=== PATIENT | male | born 1990 | race Caucasian/White ===

== ENCOUNTER 2016-08-18 16:03 | Inpatient (IN) | payer OTHER ==
[~2016-08-18] VITALS: Ht 185.4 cm; Wt 87.2 kg
--- NOTE | ~2016-08-18 | EKG ---
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
[2016-08-18 16:05] VITALS: BP 190/122
[2016-08-18] MEDS ORDERED: NORCO 5-325 TA1 EACH PO (16:12)
[2016-08-18 18:54] LABS: AMP/METHAMP Negative (Negative); BARBITURATES Negative (Negative); BENZODIAZEPINES POSITIVE (Negative); COCAINE Negative (Negative); METHADONE Negative (Negative); OPIATES POSITIVE (Negative); PCP Negative (Negative); THC Negative (Negative)
[2016-08-18 18:59] LABS: HEMATOCRIT 42.4 % (42.0-52.0); HEMOGLOBIN 15.1 gm/dL (14.0-18.0); MCH 31.9 pg (26.0-34.0); MCHC 35.5 g/dL (28.0-37.0); MCV 89.7 fL (80.0-100.0); PLATELET COUNT 265 thou/uL (150-400); RBC 4.72 mil/uL (4.50-6.00); RDW 12.7 % (10.5-14.5); WBC 12.9 thou/uL (4.0-11.0)
[2016-08-18 19:02] LABS: MANUAL DIFF YES
[2016-08-18 19:08] LABS: CALCIUM 9.5 mg/dL (8.5-10.1); CREATININE 1.4 mg/dL (0.7-1.3); POTASSIUM 4.1 mmol/L (3.5-5.1)
[2016-08-18 19:13] LABS: ALBUMIN 4.4 g/dL (3.4-5.0); TOTAL BILIRUBIN 0.9 mg/dL (<0.1-1.0); TOTAL PROTEIN 8.5 g/dL (6.4-8.2)
[2016-08-18 19:24] LABS: ABSOLUTE NEUTROPHILS 11.7 thou/uL (1.4-8.2); TOTAL CELL COUNT 100
[2016-08-18 19:25] VITALS: BP 161/88
[2016-08-18 19:27] VITALS: BP 146/82
[2016-08-18] MEDS ORDERED: FLEXERIL PO (20:32)
[2016-08-19 00:34] VITALS: BP 131/74
[2016-08-19 04:00] VITALS: BP 131/70
[2016-08-19 07:34] VITALS: BP 134/63
[2016-08-19] MEDS ORDERED: VALIUM5 MG PO (11:02)
[2016-08-19] MEDS ORDERED: IBUPROFEN 400400 M2 PO (11:02)
[2016-08-19] MEDS ORDERED: PREDNISONE 10 M10 MG PO (11:02)
[2016-08-19] MEDS ORDERED: ROXICODONE15 M1 PO (11:02)
[2016-08-19 11:06] VITALS: BP 134/63
== END 2016-08-19 11:34 | disposition home or self-care (01) | DRG 552 ==
LOC: ER 16:03 → 4S 17:21 → EROBS 17:21 → 4S 18:23
PROVIDERS: Nurse Practitioner Family
DX: M51.27 Other intervertebral disc displacement, lumbosacral region (principal); F17.210 Nicotine dependence, cigarettes, uncomplicated; R00.0 Tachycardia, unspecified; Z79.899 Other long term (current) drug therapy
CPT/HCPCS: 10102

== ENCOUNTER 2016-08-26 00:59 | Emergency (ER) | payer OTHER ==
[~2016-08-26] VITALS: Ht 185.4 cm; Wt 95.3 kg
[~2016-08-26 00:59] MED LIST: FLEXERIL PO; IBUPROFEN 400400 M2 PO; NORCO 5-325 TA1 EACH PO; PREDNISONE 10 M10 MG PO; ROXICODONE15 M1 PO; VALIUM5 MG PO
[2016-08-26] MEDS ORDERED: NORCO 5-325 TA1 EACH PO (01:26)
[2016-08-26 01:51] LABS: ABSOLUTE NEUTROPHILS 5.3 thou/uL (1.4-8.2); BASOPHILS 1.1 % (0.0-2.0); EOSINOPHILS 2.6 % (0.0-3.0); HEMATOCRIT 44.5 % (42.0-52.0); HEMOGLOBIN 15.8 gm/dL (14.0-18.0); LYMPHOCYTES 33.1 % (24.0-44.0); MCH 31.4 pg (26.0-34.0); MCHC 35.5 g/dL (28.0-37.0); MCV 88.7 fL (80.0-100.0); MONOCYTES 10.4 % (1.0-8.0); PLATELET COUNT 325 thou/uL (150-400); POLYS 52.8 % (36.0-66.0); RBC 5.02 mil/uL (4.50-6.00); RDW 12.8 % (10.5-14.5)
[2016-08-26 01:55] LABS: MANUAL DIFF NO
[2016-08-26 01:58] LABS: CALCIUM 9.1 mg/dL (8.5-10.1); POTASSIUM 3.9 mmol/L (3.5-5.1)
[2016-08-26 03:08] LABS: URINE BILIRUBIN NEGATIVE (Negative); URINE BLOOD NEGATIVE (Negative); URINE COLOR YELLOW; URINE GLUCOSE-RANDOM* NEGATIVE (Negative); URINE KETONES NEGATIVE (Negative); URINE NITRITE NEGATIVE (Negative); URINE PROTEIN (DIPSTICK) NEGATIVE (Negative); URINE SPECIFIC GRAVITY <= 1.005 (1.003-1.035); URINE UROBILINOGEN 0.2 E.U./dl (0.2-1.0)
== END 2016-08-26 02:43 | disposition home or self-care (01) ==
LOC: ER 00:59
PROVIDERS: Emergency Medicine
DX: M54.41 Lumbago with sciatica, right side (principal); F17.210 Nicotine dependence, cigarettes, uncomplicated; F10.99 Alcohol use, unspecified with unspecified alcohol-induced disorder

== ENCOUNTER 2020-06-25 19:33 | Inpatient (IN) | payer OTHER ==
[~2020-06-25] VITALS: Ht 185.4 cm; Wt 93.0 kg
--- NOTE | ~2020-06-25 | EMS ---
[address] [address] EMS Patient Care Report Name: JASEN KOWALSKI Room #: REG STEPHAN Wei#: [id number] Admission: 06/25/20 Attend Phys: Discharge: Date of : [birth year] Report #: [id number] THIS REPORT FOR: //name// Report Transmitted: 06/25/2020 20:57 EMS Care Summary [facility] MED-[facility] Incident [id number] @ 06/25/2020 18:59 Incident Location [address] [place] [address] Patient JASEN KOWALSKI Male, 30 Years 1990 Patient Address [address] [place] [address] Patient History Back Pain (Chronic), Patient Allergies No known allergies, Patient Medications None Reported, Chief Complaint back pain Disposition Transported No Lights/[place] Reason Traumatic Injury Transported To [facility] Narrative Patient was found lying supine on ground near the back of his truck. Patient was awake, alert and oriented upon arrival in no acute distress. Patient explained to EMS that he was lifting his tool box into his truck when he had a sudden onset of lower back pain that was "shooting" pains into his left leg. [facility] [address] [place] [address] EMS Patient Care Report Name: JASEN KOWALSKI Room #: REG STEPHAN Wei#: [id number] Admission: 06/25/20 Attend Phys: Discharge: Date of : [birth year] Report #: [id number] Patient advises EMS that he has dealt with a "bulging disk" in the lumbar section of his back for several years, but never had the pain like this that began shooting down his leg. Patient denies any recent injury or fall, but does report he has noted occasional pain. Patient denies any dizziness, headache, or blurred vision. Patient also denies any loss of bowel during incident as well. Patient denies any complaint of nausea, chest pain, or difficulty breathing. Patient denies any recent cough, cold, fever, or sore throat. Transport is offered and accepted. destination of choice is [place]. Patient was able to stand upright with assistance and sit onto cot. Patient was secured to cot and moved to ambulance for further exam. IV was established and patient was administered fentanyl for pain. Patient was able to relax and transport was initiated to [place]. Patient did report pain decrease after pain medicine during transport. Patient was able to relax some, but still reported the pain occasionally "shooting down his leg." Patient denies any other complaints during transport. Patient was taken to ED room 2 at [place]. Patient was able to move onto ED bed once beds were placed at same height. Verbal report and patient care was given to ED staff at bedside. Initial Vitals @19:18P: 99,BP: 174/110,Pain: 5/10, @19:26P: 93,R: 20,BP: 153/103,Temp: 97.8F,SpO2: 98,NM Suspected: false @19:10P: 111,R: 18,BP: 188/129,Pain: 8/10,GCS: 15,SpO2: 100,Revised Trauma: 12, Assessments @19:09MENTAL:Person Oriented,Time Oriented,Place Oriented,Event Oriented,SKIN:HEENT:LUNG SOUNDS:General: No Abnormalities,ABDOMEN:General: No Abnormalities,PELVIS//GI:EXTREMITIES:Left Arm: No Abnormalities,Right Arm: No Abnormalities,Left Leg: No Abnormalities,Right Leg: No Abnormalities,PULSE:NEURO:No Abnormalities, Impression Back Pain Procedures @19:11Surgical Mask on PatientResponse: Unchanged@19:12Saline Lock 10cc (20 ga) Site: Antecubital-LeftResponse: UnchangedSucceeded@19:15Fentanyl - 100 Micrograms (mcg) - Intravenous (IV)Response: Improved Timeline 18:58,Call Received 18:58,Psap Call 18:59,Dispatched 19:00,En Route 19:03,On Scene 19:04,[place] [address] EMS Patient Care Report Name: JASEN KOWALSKI KIMANI Room #: REG STEPHAN Wei#: [id number] Admission: 06/25/20 Attend Phys: Discharge: Date of : 88 Report #: [id number] 19:10,BP: 188/129 M,PULSE: 111,RR: 18 R,SPO2: 100 Ox,ETCO2: ,BG: ,PAIN: 8,GCS: 15, 19:11,Surgical Mask on Patient,Response: Unchanged 19:12,Saline Lock 10cc 20 ga Site: Antecubital-Left,Response: UnchangedSucceeded, 19:15,Fentanyl - 100 Micrograms (mcg) - Intravenous (IV),Response: Improved 19:17,Depart Scene 19:18,BP: 174/110 M,PULSE: 99,RR: R,SPO2: Ox,ETCO2: ,BG: ,PAIN: 5,GCS: , 19:26,BP: 153/103 M,PULSE: 93,RR: 20 R,SPO2: 98 Ox,ETCO2: ,BG: ,PAIN: ,GCS: , 19:29,At Destination 19:50,Call Closed Disclaimer v1.1 Copyright 2020 [email or web address] This EMS Care Summary contains data elements from the applicable legal record (which may be displayed differently). It is designed to provide pertinent information for the following purposes: continuity of care, clinical quality, and state data reporting. The complete legal record is available to ED staff and administrators of the receiving hospital in [employer]'s Patient Tracker. All data is provided "as is."
[2020-06-25 19:38] VITALS: BP 176/110
[2020-06-25 20:41] LABS: ABSOLUTE NEUTROPHILS 5.3 thou/uL (1.4-8.2); BASOPHILS 0.7 % (0.0-2.0); EOSINOPHILS 1.1 % (0.0-3.0); HEMATOCRIT 45.2 % (42.0-52.0); HEMOGLOBIN 15.6 gm/dL (14.0-18.0); LYMPHOCYTES 23.3 % (24.0-44.0); MCH 32.2 pg (26.0-34.0); MCHC 34.6 g/dL (28.0-37.0); MCV 93.2 fL (80.0-100.0); PLATELET COUNT 308 thou/uL (150-400); POLYS 61.9 % (36.0-66.0); RBC 4.85 mil/uL (4.50-6.00); RDW 12.7 % (10.5-14.5); WBC 8.6 thou/uL (4.0-11.0)
[2020-06-25 20:43] LABS: CALCIUM 9.4 mg/dL (8.5-10.1); CREATININE 1.1 mg/dL (0.7-1.3); POTASSIUM 3.7 mmol/L (3.5-5.1)
[2020-06-25 20:49] LABS: ALBUMIN 4.1 g/dL (3.4-5.0); TOTAL BILIRUBIN 0.6 mg/dL (0.2-1.0); TOTAL PROTEIN 8.2 g/dL (6.4-8.2)
[2020-06-25] MEDS ORDERED: TOPROL XL25 MG PO (21:09)
[2020-06-25] MEDS ORDERED: ADVIL200 M1 PO (21:09)
[2020-06-26 00:03] VITALS: BP 143/92
[2020-06-26 00:37] VITALS: BP 139/88
[2020-06-26 01:40] VITALS: BP 154/82
[2020-06-26] MEDS ORDERED: LOPRESSOR50 MG PO (01:56)
[2020-06-26 02:40] VITALS: BP 147/91
[2020-06-26] MEDS ORDERED: KLONOPIN1 MG PO (02:42)
--- NOTE | 2020-06-26 02:57 | NUR ---
RECEIVED CARE OF PATIENT AT 0100 VIA CART FROM ED ACCOMPANIED BY ED PERSONEL. PATIENT ALERT AND ORIENTED X4. C/O PAIN. WAS WAITING FOR PAIN MED ORDERS BEFORE MED COULD BE GIVEN. VS WERE TAKEN AT 0137 BY REGULATORY COMPLIANCE COORDINATOR. AT 0140 PATIENT WAS FOUND ON FLOOR. IT WAS UNWITNESSED AND DISCOVERED BY REGULATORY COMPLIANCE COORDINATOR. PATIENT WAS ALERT AND ORIENTED STILL. STATED HE BELIEVED HE COULD GET UP AND GO TO THE BATHROOM. HE DID NOT MENTION TO PAC HE NEEDED TO GO TO BATHROOM. NO APPARENT INJURY NOTED. PATIENT DENIES HITTING HEAD. TILE PICKER ANDRES, AND THE SHEET METAL WORKER WAS NOTIFIED. PATIENT DID NOT WANT ANY FAMILY MEMBER NOTIFIED. PATIENT EDUCATED IN THE FACT HE NEEDS TO CALL FOR HELP TO GET UP. PATIENT STATES HE UNDERSTANDS THE IMPORTANCE OF CALLING FOR HELP.
[2020-06-26 07:32] VITALS: BP 136/73
--- NOTE | 2020-06-26 10:45 | NUR ---
Received awake on bed. Due medications given as prescribed, able to swallow meds w/o difficulty. On room air. Vital signs stable. On MS, not on telemetry; no complains and signs of chest pain, crushing sensation and heaviness. Assisted in ADLs. On heart healthy diet- tolerating well; no nausea, no vomiting and no abdominal pain noted. Continent of bowel and bladder, using urinal and able to go to the toilet with standby assist- output measured and recorded accordingly. Falls bundle in place; fall this AM. With SL at L AC- intact; on IV pain meds. Complained of back pain, due PRN pain meds given as prescribed; pt requesting to have pain meds review for additional PO meds and asking if he can be discharged today- Dr Cagle informed. Patient seen and examined by OT/PT- able to walk in the hallway with cane- Dr Cagle informed. To continue monitoring patient.
[2020-06-26 11:03] VITALS: BP 136/73
--- NOTE | 2020-06-26 11:07 | NUR ---
ASSESSMENT: CM REVIEWED CHART AND MET WITH PATIENT. PT IS ALERT AND ORIENTED X4. 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 PT REPORTS THAT HE LIVES IN A HOUSE WITH HIS MOTHER. PT IS NORMALLY FULLY INDEPENDENT WITH ADLS AND AMBULATION. PT REPORTS HAVING ACCESS TO A CANE. PT IS ADMITTED DUE TO PAIN CONTROL. PT REPORTS HE HAS NO ACTIVE INSURANCE AND REPORTS HIS INSURANCE WILL BECOME ACTIVE ON July. PT REPORTS HE CURRENTLY HAS NO PCP. CM PROVIDED PATIENT WITH SAFETY NET CLINICS AND CONTACTS IF NEEDED. CM ALSO PROVIDED PATIENT WITH LIST OF PCP HERE AT [facility] FOR WHEN HIS INSURANCE IS ACTIVE TO SEE IF THEY ARE IN NETWORK. CM ALSO PROVIDED PATIENT CONTACT NUMBER TO THE PAIN CLINIC HE REQUESTED. PT WAS SEEN BY PHYSICAL THERAPY AND CLEARED TO DISCHARGE AND SAFE FOR HOME WITH ASSISTANCE OF CANE. PT REPORTS NO FURTHER NEEDS FROM CM.
[2020-06-26] MEDS ORDERED: ROXICODONE30 MG PO (13:00)
[2020-06-26] MEDS ORDERED: VALIUM10 MG PO (13:03)
[2020-06-26] MEDS ORDERED: PREDNISONE 20 M20 M1 PO (13:04)
--- NOTE | 2020-06-26 13:56 | NUR ---
PT REQUEST ANY ASSISTance with FILLING HIS MEDICATION HE IS PATIENT PAY. ATTENDING STATING PATIENT WANTS HIS MEDICATIONS FILLED AT [facility] HERE. CM FAXED SCRIPTS DOWN TO PHARMACY. CM WILL COVER THE COST OF PREDNISONE (10.93) AND PT WILL HAVE TO PAY FOR HIS PAIN MEDICATIONS. CM FAXED FACESHEET TO OUTPATIENT PHARM[facility]. CM DIRECTOR APPROVAL FOR COVERING PREDNISONE. OUTPATIENT [facility] IS FILLING ALL MEDICATIONS AND PT CAN PICK THEM UP PRIOR TO LEAVING AT TIME OF DISCHARGE. CM NOTIFIED PT WELL BEDSIDE RN AND PT WILL NEED TO TAKE ORIGINAL SCRIPTS TO PHARMACY BEFORE CLOSE AT 1530.
== END 2020-06-26 14:37 | disposition home or self-care (01) | DRG 552 ==
LOC: ER 19:33 → EROBS 23:25 → 4S 06-26 00:41
PROVIDERS: Physician Assistant; ADMIT Hospitalist; ATTEND Hospitalist
DX: M51.27 Other intervertebral disc displacement, lumbosacral region (principal); G89.29 Other chronic pain; I10 Essential (primary) hypertension; F41.9 Anxiety disorder, unspecified; K59.00 Constipation, unspecified; I48.0 Paroxysmal atrial fibrillation; Z79.899 Other long term (current) drug therapy

== ENCOUNTER 2020-07-01 21:07 | Emergency (ER) | payer OTHER ==
[~2020-07-01] VITALS: Ht 185.4 cm; Wt 93.0 kg
[~2020-07-01 21:07] MED LIST changes: +ADVIL200 M1 PO; +KLONOPIN1 MG PO; +LOPRESSOR50 MG PO; +PREDNISONE 20 M20 M1 PO; +ROXICODONE30 MG PO; +TOPROL XL25 MG PO; +VALIUM10 MG PO
[2020-07-01] MEDS ORDERED: PERCOCET 10-321 EAC1 PO (23:12)
[2020-07-01] MEDS ORDERED: VALIUM10 MG PO (23:12)
[2020-07-01 23:20] VITALS: BP 158/99
== END 2020-07-01 23:24 | disposition home or self-care (01) ==
LOC: ER 21:07
DX: M51.36 Other intervertebral disc degeneration, lumbar region (principal); I48.91 Unspecified atrial fibrillation; G89.29 Other chronic pain; I10 Essential (primary) hypertension; F17.210 Nicotine dependence, cigarettes, uncomplicated; Z79.899 Other long term (current) drug therapy